=== PATIENT | female | born 1965 | race Caucasian/White ===

== ENCOUNTER 2019-12-26 16:13 | Emergency (ER) | payer MEDICAID ==
[~2019-12-26] VITALS: Ht 154.9 cm; Wt 49.9 kg
[2019-12-26 16:36] VITALS: BP_SYST 115
--- NOTE | 2019-12-26 16:42 | NUR ---
PATIENT TO WAITING ROOM; STABLE AND UNCHANGED
--- NOTE | 2019-12-26 19:00 | NUR ---
MSE completed by myself.
[2019-12-26] MEDS ORDERED: DIPH-TET-PERTUS Vaccine 0.5 ML VIAL (ADACEL) I.M. ONE (19:15)
[2019-12-26] MEDS ORDERED: AMOXICILLIN/CLAVULANATE POTASSIUM 875 MG TABLET PO ONE (19:15)
--- NOTE | 2019-12-26 19:22 | NUR ---
Placed in hallway chair.
--- NOTE | 2019-12-26 19:30 | NUR ---
Raul Biggs [employer] CHECK[employer] bedside for pt eval
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
[2019-12-26 19:45] VITALS: BP_SYST 115
--- NOTE | 2019-12-26 19:45 | NUR ---
Patient given written and verbal discharge instructions and verbalizes understanding. ER MD discussed with patient the results and treatment provided. Patient in stable condition. ID arm band removed. Rx of Bacitracin ointment and Augumentin given. Patient educated on pain management and to follow up with PMD. Pain Scale 0/10 Opportunity for questions provided and answered. Medication side effect fact sheet provided.
== END 2019-12-26 19:45 | disposition home or self-care (01) ==
LOC: SED 16:13
DX: S61.250A Open bite of right index finger without damage to nail, initial encounter (principal); S61.252A Open bite of right middle finger without damage to nail, initial encounter; W54.0XXA Bitten by dog, initial encounter; Y93.89 Activity, other specified; Y92.89 Other specified places as the place of occurrence of the external cause; Y99.8 Other external cause status
CPT/HCPCS: 90715; 99283